=== PATIENT | male | born 1960 | race Caucasian/White ===

== ENCOUNTER 2019-01-31 07:37 | Day surgery (SDC) | payer OTHER ==
[2019-01-31] MEDS ORDERED: Dextrose 5%-Lactated Ringers 1,000 ML IV SCH (08:15)
[2019-01-31] MEDS ORDERED: Midazolam 1 MG/ML 2 ML SDV ONE (09:30)
[2019-01-31] MEDS ORDERED: fentaNYL 100 MCG/2 ML SDV ONE (09:30)
[2019-01-31] MEDS ORDERED: Propofol 200 MG/20 ML SDV ONE ×2 (09:30→10:44)
--- NOTE | 2019-02-03 11:20 | OR ---
DATE OF PROCEDURE: 01/31/2019 PREOPERATIVE DIAGNOSIS: Indication for screening colonoscopy. POSTOPERATIVE DIAGNOSIS: Single polyp at junction of the cecum and ascending colon. OPERATIVE PROCEDURE: Flexible colonoscopy with polypectomy by snare technique ([id number]). ANESTHESIA: IV sedation. INDICATION FOR PROCEDURE: A 58-year-old presenting with an indication for screening colonoscopy. The plan is to proceed with a colonoscopy with biopsies and/or polypectomy as indicated. Potential risks of the procedure including bleeding and perforation were discussed, and the patient wishes to proceed. DETAILS OF PROCEDURE: The patient was taken to the operating room and placed in a left lateral decubitus position. IV sedation was administered, after which the initial digital rectal exam was performed and was unremarkable. Of note, the patient's prostate was normal size and had no nodularity or clinically abnormal findings on digital exam. The colonoscope was then passed into the rectum with retroflexion revealing uncomplicated hemorrhoidal columns. Scope was eventually passed to the cecum. The prep was fairly good. There was a small amount of liquid stool present. There were no areas of diverticulosis and no areas of colitis. A single small polyp in the range of 3 mm was noted at the junction of the cecum and ascending colon. This was encircled at its base and removed with a cautery snare technique and sent for histologic evaluation. Good hemostasis at the polypectomy site was seen. Scope was then withdrawn. No additional abnormalities were noted and the procedure was then concluded. Recommendation at this point would be to repeat the colonoscopy in 2 or 10 years depending on whether this is an adenomatous polyp versus hyperplastic polyp. We will be calling the patient once that pathology report becomes available. Jamel Leone MD /[id number]
== END 2019-01-31 12:24 | disposition home or self-care (01) ==
LOC: JP.SDS 07:37
PROVIDERS: ATTEND Surgery
DX: Z12.11 Encounter for screening for malignant neoplasm of colon (principal); D12.0 Benign neoplasm of cecum; K64.9 Unspecified hemorrhoids; K21.9 Gastro-esophageal reflux disease without esophagitis; J45.909 Unspecified asthma, uncomplicated
CPT/HCPCS: 45385; J2250; J2704; J3010; J7042; 88305

== ENCOUNTER 2023-02-16 06:07 | Day surgery (SDC) | payer OTHER ==
[2023-02-16] MEDS ORDERED: fentaNYL 50 MCG/ML SDV ONE (06:55)
[2023-02-16] MEDS ORDERED: Midazolam 1 MG/ML 2 ML SDV ONE (06:55)
[2023-02-16] MEDS ORDERED: Propofol 200 MG/20 ML SDV ONE (06:55)
[2023-02-16] MEDS ORDERED: Dextrose 5%-Lactated Ringers 1,000 ML IV SCH (07:00)
== END 2023-02-16 10:22 | disposition home or self-care (01) ==
LOC: JP.SDS 06:07
PROVIDERS: ATTEND Surgery
DX: R13.10 Dysphagia, unspecified (principal); K44.9 Diaphragmatic hernia without obstruction or gangrene; K31.89 Other diseases of stomach and duodenum; K21.9 Gastro-esophageal reflux disease without esophagitis; I10 Essential (primary) hypertension; F17.200 Nicotine dependence, unspecified, uncomplicated
CPT/HCPCS: 43239; 87081; 88305; J2250; J2704; J3010; J7121

== ENCOUNTER 2023-03-17 06:42 | Inpatient (IN) | payer OTHER ==
[~2023-03-17 06:42] MED LIST: Bupivacaine 0.5% 50 ML MDV ONE; Lidocaine 1% with EPINEPHrine 1:100,000 50 ML MDV ONE; Meropenem 500 MG SDV ONE
[2023-03-17] MEDS ORDERED: ceFAZolin 2 GM in Premix Bag 1 BAG IV ONE (07:00)
[2023-03-17] MEDS ORDERED: Scopolamine 1.5 MG Transdermal Patch TOP SCH (07:00)
[2023-03-17] MEDS ORDERED: Dexamethasone 4 MG/ML SDV ONE (07:09)
[2023-03-17] MEDS ORDERED: Succinylcholine 200 MG/10 ML MDV ONE (07:09)
[2023-03-17] MEDS ORDERED: Glycopyrrolate 0.2 MG/ML 5 ML MDV ONE (07:09)
[2023-03-17] MEDS ORDERED: Ondansetron 4 MG/2 ML SDV ONE (07:09)
[2023-03-17] MEDS ORDERED: Rocuronium 50 MG/5 ML Vial ONE (07:09)
[2023-03-17] MEDS ORDERED: Propofol 200 MG/20 ML SDV ONE (07:09)
[2023-03-17] MEDS ORDERED: fentaNYL 250 MCG/5 ML SDV ONE (07:09)
[2023-03-17] MEDS ORDERED: Neostigmine Methylsulfate 1 MG/ML 5 ML Syringe ONE (07:09)
[2023-03-17] MEDS: Dextrose 5%-Lactated Ringers 1,000 ML IV SCH ×3 (07:19→17:53)
[2023-03-17] MEDS ORDERED: ePHEDrine 50 MG/ML SDV ONE (08:12)
[2023-03-17] MEDS ORDERED: Sodium Chloride 0.9% 10 ML ONE (08:12)
[2023-03-17] MEDS ORDERED: fentaNYL 100 MCG/2 ML SDV ONE (09:17)
[2023-03-17] MEDS ORDERED: Sugammadex Sodium 200 MG/2 ML VIAL ONE (09:28)
[2023-03-17] MEDS ORDERED: Acetaminophen 1,000 MG in Premix Bag 1 BAG IV ONE (09:45)
[2023-03-17] MEDS ORDERED: HYDROmorphone 2 MG Tab PO PRN (10:40)
[2023-03-17] MEDS: SCOPOLAMINE PATCH CHECK TOP SCH (10:59)
[2023-03-17] MEDS: Nicotine 21 MG/24 Hr Patch TRDERM SCH (10:59)
[2023-03-17] MEDS ORDERED: Pantoprazole 40 MG Vial IVPUSH SCH (11:00)
[2023-03-17] MEDS ORDERED: amLODIPine 5 MG Tab PO SCH (11:00)
[2023-03-17] MEDS ORDERED: HYDROmorphone 1 MG/ML Syringe IV PRN (11:00)
[2023-03-17] MEDS ORDERED: HYDROmorphone 0.5 MG/0.5 ML Syringe IVPUSH PRN (11:00)
[2023-03-17] MEDS ORDERED: Losartan 50 MG Tab PO SCH (11:00)
[2023-03-17] MEDS ORDERED: Metoclopramide 10 MG/2 ML SDV IVPUSH PRN (11:00)
[2023-03-17] MEDS ORDERED: Ondansetron 4 MG/2 ML SDV IVPUSH PRN (11:00)
[2023-03-17] MEDS: Acetaminophen 500 MG Tab PO SCH ×2 (15:00→21:10)
[2023-03-18] MEDS: Dextrose 5%-Lactated Ringers 1,000 ML IV SCH (02:00)
[2023-03-18] MEDS: Acetaminophen 500 MG Tab PO SCH ×2 (03:40→05:51)
[2023-03-18] MEDS ORDERED: Dextrose 5%-Lactated Ringers 1,000 ML IV SCH ×2 (07:36→07:45)
[2023-03-18] MEDS: Nicotine 21 MG/24 Hr Patch TRDERM SCH (08:36)
[2023-03-18] MEDS: SCOPOLAMINE PATCH CHECK TOP SCH (08:37)
[2023-03-18] MEDS ORDERED: Losartan 50 MG Tab PO SCH (09:00)
[2023-03-18] MEDS ORDERED: Pantoprazole 40 MG Tab.CR PO SCH (09:00)
[2023-03-18] MEDS ORDERED: amLODIPine 5 MG Tab PO SCH (09:00)
== END 2023-03-18 08:55 | disposition home or self-care (01) | DRG 328 ==
LOC: JP.SDS 06:42 → JP.MS 09:30
PROVIDERS: ADMIT Surgery; ATTEND Surgery
PROC: 0DV44ZZ Restriction of Esophagogastric Junction, Percutaneous Endoscopic Approach (ICD-10-PCS; principal; 2023-03-17)
PROC: 0BUT4JZ Supplement Diaphragm with Synthetic Substitute, Percutaneous Endoscopic Approach (ICD-10-PCS; 2023-03-17)
PROC: 0WBC4ZZ Excision of Mediastinum, Percutaneous Endoscopic Approach (ICD-10-PCS; 2023-03-17)
DX: K44.9 Diaphragmatic hernia without obstruction or gangrene (principal); K21.9 Gastro-esophageal reflux disease without esophagitis; D15.2 Benign neoplasm of mediastinum; I10 Essential (primary) hypertension; G43.909 Migraine, unspecified, not intractable, without status migrainosus; F17.200 Nicotine dependence, unspecified, uncomplicated; Z20.822 Contact with and (suspected) exposure to COVID-19; Z79.899 Other long term (current) drug therapy
CPT/HCPCS: 88304; 93005; A9270-GY; C1713; C1781; C9113; J0131; J0171; J0330; J0690; J1100; J2020; J2185; J2405; J2704; J2710; J2795; J3010; J3490; J7121; U0002